=== PATIENT | female | born 1990 | race Hispanic/Latino ===

== ENCOUNTER 2016-10-27 03:21 | Emergency (ER) | payer OTHER ==
[~2016-10-27] VITALS: Ht 152.4 cm; Wt 110.9 kg
[~2016-10-27 03:21] MED LIST: ASCO-294 PO; DOCU-41 PO; FERR-83 PO; HYDR-4003 PO; IBUP800T28 PO; ONDA4TAB9 PO; PREN1TAB25 PO
[2016-10-27 03:36] VITALS: BP 106/71; PULSE 75; RESP 16; O2SAT 98
--- NOTE | 2016-10-27 04:50 | ED.REPORT ---
HPI-Extremity Problem Lower Date of Service Oct 27, 2016 ED Provider: Dr. Reyes Pt is a 26 year old female 33.5 weeks presenting to the ED complaining of intermittent bilateral Lencho horses that woke her up from sleep tonight. She still complains of calf pain. Pt was seen at [facility] and the baby looks healthy. She denies previous similar symptoms this severe or any other symptoms at this time. Nursing Notes Stated Complaint: CRAMPING/SPASMS RT & LT LEG Chief Complaint: General Complaint Nursing Notes Reviewed: Yes Allergies: Coded Allergies: No Known Allergies (Verified Allergy, Unknown, 04/22/15) Scheduled Ascorbate Calcium (Vitamin C) 500 Mg Tablet 500 MG PO DAILY Take with Iron Ferrous Sulfate (Ferrous Sulfate) 325 Mg Tablet 325 MG PO DAILY Vit#96/Ferrous Fum/FA ( Tablet) 1 Each Tablet 1 EACH PO DAILY Scheduled PRN Docusate Sodium (Colace) 100 Mg Capsule 100 MG PO BID PRN PRN For Constipation Hydrocodone-Acetaminophen 5-325 mg (Hydrocodone-Acetaminophen 5-325 mg) 1 Each Tablet 1 TABLET PO Q6H PRN PRN For Pain Ibuprofen (Ibuprofen) 800 Mg Tablet 800 MG PO TID PRN PRN For Pain Ondansetron ODT (Zofran ODT) 4 Mg Tablet 4 MG PO Q4H PRN PRN For Nausea General Time Seen by MD: 04:49 Chief Complaint Leg injury right, Leg injury left Hx Obtained From: Patient Arrived By: Walk-in Onset Occurred: Just prior to arrival Symptom Duration: Intermittent Location: : Leg left: Leg right Quality: Cramping Severity: Current: Moderate Severity: Maximum: Severe Recent Healthcare: No recent doctor visit, No recent hospitalization Similar Sx Previous: No Past Medical History Past Medical History Morbid obesity Past Surgical History Reports: Smoking History Current Every Day Smoker Social History Other Social History: Local resident Ambulatory Status Independent Review of Systems Constitutional: Denies: Chills, Fever, Weakness - generalized Musculoskeletal: Reports: Extremity pain (Bilateral leg cramping) Complete sys rev & neg: except as marked. Respiratory: Denies: Shortness of breath Cardiovascular: Denies: Chest pain GI: Denies: Abdominal pain Physical Exam Initial Vital Signs Vital Signs (First) Date Time Temp Pulse Resp B/P Pulse Ox O2 Delivery O2 Flow Rate FiO2 10/27/16 03:36 36.4 75 16 106/71 98 Room Air Initial VS: Reviewed, Vital signs normal General/Constitutional: Well-developed, Well-nourished Head / Eyes: Atraumatic, Normocephalic, PERRL ENT: Mucous membranes moist, Conjunctiva normal, No scleral icterus Respiratory: Breath sounds normal, Clear to auscultation, No respiratory distress Cardiovascular: Regular rate & rhythm, Heart sounds normal, Intact distal pulses Upper Extremities: Vascular intact, Neuro intact, No swelling, No tenderness Skin: Warm, Dry, No cyanosis Neurologic: Alert, Oriented, Nonfocal Psychiatric: Mood/affect normal, Behavior normal, Normal thought content Lower Extremity / Pelvis / MS: No deformity, Neurologic intact, Vascular intact , No edema Abdomen: Atraumatic, Soft, Non-tender Gravid uterus Interpretation & Diagnostics Lab Results Interpretation Result Diagram: 10/27/16 0513 Test 10/27/16 05:13 Sodium Level 136mEq/L (134-144) Potassium Level 3.6mEq/L (3.5-5.2) Chloride Level 102mEq/L (97-108) Carbon Dioxide Level 19mmol/L (18-29) Blood Urea Nitrogen 6mg/dL (6-20) Creatinine 0.42mg/dL (0.57-1.00) Estimat Glomerular Filtration Rate 259mL/min (>59) Glucose Level 112mg/dL (60-99) Calcium Level 8.6mg/dL (8.5-10.1) Magnesium Level 1.7mg/dL (1.6-2.6) Total Bilirubin 0.2mg/dL (0.0-1.2) Aspartate Amino Transf (AST/SGOT) 10U/L (0-50) Alanine Aminotransferase (ALT/SGPT) 6U/L (0-32) Alkaline Phosphatase 128U/L (25-150) Total Protein 6.7g/dL (6.4-8.4) Albumin 2.9g/dL (3.4-5.0) Hold Kingsley Top Tube Received (Received) Lab values outside NL range: no clinical significance. Lab Results Interpretation: Magnesium 1.7, lower end of normal Re-Eval/Medical Decision Med Decision/Clinical Course 26-year-old female at 33-1/2 weeks , previously uncomplicated. She has been having nocturnal leg cramps. She was given magnesium as a trial. Follow up with her primary OB. Re-Evaluation/Progress : Time of Eval: 06:01 Patient Status: Condition improved Re-Evaluation/Progress Note: Discussed plan for discharge. Pt understands and agrees. Counseled Regarding: Diagnosis, Lab results, Need for follow-up, When/why to return to ED Discharge & Departure Impression: Primary Impression: Nocturnal leg cramps Disposition: Home Discharge Condition All VS Reviewed: Yes Condition: Improved Additional Instructions: Try magnesium 250-500 mg daily for your cramps. Stop this if you get diarrhea from it. Talk to your doctor about other possible treatments for leg cramps. Referrals: [facility] Scribe Attestation Portions of this note were transcribed by Yamini Hazel. I, Dr. Reyes personally performed the history, physical exam and medical decision-making; I reviewed and confirmed the accuracy of the information in the transcribed note. Signed by: Shan Howard, 10/27/2016 at 0601. copies to: [facility] Travis Reyes MD Oct 27, 2016 04:50 YAMINI HAZEL Oct 27, 2016 05:00
[2016-10-27 05:44] LABS: Magnesium 1.7 mg/dL (1.6-2.6)
== END 2016-10-27 06:18 | disposition home or self-care (01) ==
LOC: SED 03:21
DX: O26.893 Other specified pregnancy related conditions, third trimester (principal); G47.62 Sleep related leg cramps; O99.333 Smoking (tobacco) complicating pregnancy, third trimester; Z3A.33 33 weeks gestation of pregnancy